=== PATIENT | female | born 1930 | race Caucasian/White ===

== ENCOUNTER 2018-11-28 16:04 | Observation (INO) ==
[2018-11-28 16:35] LABS: Basophils % 0.8 % (0.1-2.0); Eosinophils # 0.2 K/mm3 (0.0-0.4); Eosinophils % 4.6 % (0.1-12.0); Hematocrit 24.4 % (37.0-47.0); Lymphocytes # 1.9 K/mm3 (0.7-4.5); Lymphocytes % 50.2 % (10-50); Mean Corpuscular HGB Conc 29.9 g/dL (31.8-35.4); Mean Corpuscular Hemoglobin 24.6 pg (27.0-31.2); Mean Corpuscular Volume 82.3 fl (81-99); Mean Platelet Volume 9.9 fl (7.4-10.4); Monocytes # 0.3 K/mm3 (0.1-1.0); Monocytes % 8.7 % (1.7-9.3); Neutrophils # 1.3 K/mm3 (1.8-7.8); Neutrophils % 35.7 % (37.0-80.0); Platelet Count 189 K/mm3 (142-424); Red Blood Count 2.97 M/mm3 (4.20-5.40); Red Cell Distribution Width 15.7 % (11.5-17.5); White Blood Count 3.7 K/mm3 (4.8-10.8)
[2018-11-28 16:42] LABS: Albumin Level 3.3 gm/dL (3.4-5.0); Albumin/Globulin Ratio 0.9 (1.1-1.8); Anion Gap 11.5 mEq/L (5-15); Bilirubin,Total 0.2 mg/dL (0.2-1.0); Calcium 9.4 mg/dL (8.5-10.1); Globulin 3.7 gm/dl (1.3-3.2); Potassium 4.5 mmoL/L (3.5-5.1)
[2018-11-28 16:43] LABS: Hemoglobin 7.3 g/dL (12.2-16.2)
--- NOTE | 2018-11-28 16:54 | Emergency Department Note ---
ED Disposition Clinical Impression: Anemia Qualifiers: Anemia type: unspecified type Qualified Code(s): D64.9 - Anemia, unspecified Disposition: Admitted As Inpatient Condition on Discharge: Good Referrals: Fran Arnold MD [Primary Care Provider] - - Critical Care Critical Care Time: No Attestation: On 11/28/18, the high probability of a clinically significant, sudden or life threatening deterioration of the following system(s) required my full and direct attention, intervention and personal management. The time I documented below is in addition to time spent performing reported procedures but includes the following listed in this critical care notation. Medical Decision Making - Bennie Inquiry Pt receiving controlled substance: No Vital Signs: 11/28/18 16:05 11/28/18 16:38 11/28/18 17:18 Temperature 98 F Temperature Source Oral Pulse Rate [Left Apical] 69 70 75 Respiratory Rate 18 16 16 Blood Pressure [Right Arm] 152/77 H 111/55 L 138/68 Blood Pressure Mean [Right Arm] 102 73 91 Blood Pressure Source [Right Arm] Automatic Cuff Automatic Cuff Blood Pressure Position [Right Arm] Sitting Sitting 02 Sat by Pulse Oximetry 96 99 99 Oxygen Delivery Method Room Air Room Air 11/28/18 18:12 Temperature Temperature Source Pulse Rate [Left Apical] 73 Respiratory Rate Blood Pressure [Right Arm] 117/60 Blood Pressure Mean [Right Arm] 79 Blood Pressure Source [Right Arm] Automatic Cuff Blood Pressure Position [Right Arm] Sitting 02 Sat by Pulse Oximetry 96 Oxygen Delivery Method - Lab Data Lab Results 11/28/18 14:00: Stool Occult Blood Negative 11/28/18 16:22: WBC 3.7 L, RBC 2.97 L, Hgb 7.3 L*, Hct 24.4 L, MCV 82.3, MCH 2 4.6 L, MCHC 29.9 L, RDW 15.7, Plt Count 189, MPV 9.9, Neut % (Auto) 35.7 L, Lymph % (Auto) 50.2 H, [place] % (Auto) 8.7, Eos % (Auto) 4.6, Baso % (Auto) 0.8, Neut # (Auto) 1.3 L, Lymph # (Auto) 1.9, [place] # (Auto) 0.3, Eos # (Auto) 0.2, Baso # (Auto) 0.0, Total Counted 100, Neutrophils % (Manual) 40 L, Band Neutrophils % 2.0, Lymphocytes % (Manual) 49, Atypical Lymphs % 1.0, Monocytes % (Manual) 4, Eosinophils % (Manual) 4 H, Platelet Estimate Normal, Macrocytosis 2+, Ovalocytes 1+ 11/28/18 16:22: Sodium 144, Potassium 4.5, Chloride 109 H, Carbon Dioxide 28, Anion Gap 11.5, BUN 29 H, Creatinine 1.12 H, Estimated Creat Clear 28, Estimated GFR 46 L, Est GFR ( Amer) 55 L, Glucose 115 H, Calcium 9.4, Total Bilirubin 0.2, AST 16, ALT 11 L, Alkaline Phosphatase 68, Total Protein 7.0, Albumin 3.3 L, Globulin 3.7 H, Albumin/Globulin Ratio 0.9 L Result diagrams: 11/28/18 16:22 11/28/18 16:22 Orders (Tests/Meds): ED MEDICATIONS Generic Name Dose Route Start Last Admin Trade Name Freq PRN Reason Stop Dose Admin Sodium Chloride 10 ml 11/28/18 16:23 Saline Flush 10ml Syringe IV 12/28/18 16:22 NEEDED PRN Maintain IV Site - Physician Consults Physician Consulted: Clayton Time: 18:19 Reason -: Admission Comment/Response: Agrees to admit the patient to the hospital. We discussed the patient's clinical information, including history, exam, laboratory and radiology results and ED course. Per hospital procedure, I will write temporary bridge inpatient orders on the patient. Specific orders requested by the admitting physician: Transfuse 2 units. Anemia labs prior to transfusion. Continue Eliquis. General Adult HPI - General Chief complaint: Recheck/Abnormal Lab/Rx Stated complaint: abnormal labs Time Seen by Provider: 11/28/18 16:54 Mode of Arrival: EMS Limitations: No Limitations Description of Symptoms (Recalled from ER Triage Doc. by RN): PT arrived to the ED from the sn[facility] with c/o abnormal lab values. assisted staff stated the PT HGB was 7.3 with morning labs. PT states she has been tired today. No pa in noted. - History of Present Illness HPI narrative: The patient has dementia and is not a reliable historian. Sent to the emergency department from [facility] because of low hemoglobin. Hemoglobin 7.3 on labs drawn today. Patient is noted to be on Eliquis. assisted record indicates increased confusion and agitation. Patient denies any complaints. Denies having any pain. - Related Data Home Medications Medication Instructions Recorded Confirmed acetaminophen ER 650 mg 650 mg PO ONCE PRN 12/28/17 07/17/18 tablet,extended release apixaban 5 mg tablet 5 mg PO BID 12/28/17 07/17/18 bisacodyl 10 mg rectal suppository 10 mg AR ONCE 12/28/17 07/17/18 calcium carbonate-vitamin D3 600 600 cap PO DAILY 12/28/17 07/17/18 mg (1,500 mg)-400 unit capsule carbidopa 25 mg-levodopa 100 mg 25 mg PO DAILY 30 Days #90 12/28/17 07/17/18 tablet ibuprofen 600 mg tablet 600 mg PO Q6 PRN 10 Days #30 12/28/17 07/17/18 memantine 28 mg capsule 28 mg PO Q24H 12/28/17 07/17/18 sprinkle,extended release 24hr morphine 30 mg tablet, crush 30 mg PO Q12H 12/28/17 07/17/18 resistant, extended release multivitamin capsule 1 cap PO QAM 12/28/17 07/17/18 polyethylene glycol 3350 17 17 g PO ONCE g 12/28/17 07/17/18 gram/dose oral powder ranitidine 150 mg tablet 150 mg PO BID tab 12/28/17 07/17/18 rivastigmine 13.3 mg/24 hour 13.3 mg TRANSDERMA DAILY 30 Days 12/28/17 07/17/18 transdermal patch #30 sennosides 17.2 mg tablet 17.2 mg PO ONCE 12/28/17 07/17/18 Previous Rx's Medication Instructions Recorded Ondansetron [Zofran 4mg ODT] 4 mg PO TIDP PRN #10 tab.rapdis 07/17/18 Allergies Allergy/AdvReac Type Severity Reaction Status Date / Time etodolac [ETODOLAC] Allergy Unknown Verified 02/08/18 09:53 nitrofurantoin Allergy Unknown Verified 02/08/18 09:53 [From MACROBID] [facility] History - Hepatitis A Screen Drug use history?: No High risk sexual behaviors?: No History of sexually transmitted infection?: No Currently employed?: No Childcare worker?: No Do you have indoor plumbing?: Yes Do you have electricity?: Yes Attestation statement:: This patient has been screened for Hepatitis A risk factors. I have reviewed the patient's past medical history: Yes Medical History: Reports:: Anxiety, Atrial Fibrillation, Deep Vein Thrombosis, Dementia, Depression, Gastroesophageal Reflux Disease(GERD), Hypertension, Osteoporosis, Pulmonary Embolism Denies:: Diabetes Mellitus Type 1, Diabetes Mellitus Type 2 Other Medical History: Reports: Arthritis, Osteoporosis, Other Comment: Parkinson's disease, Mitral valve disorder, [place], duodenal ulcer with hemorrage, alzheimer's, embolism and thrombosis of veins. Other Surgeries: Yes: Colonoscopy Amputation: No Fractures: Yes - Social History Smoking Status: Never smoker Alcohol Intake: never Occupational Status: retired - Psychiatric History Expresses thoughts of harming self/others: None Suicide Plan Description: No Plan Pschychiatric History:: Reports:: Anxiety, Depression Family Hx:: Unable to obtain ROS Obtained: Yes unobtainable due to mental condition Physical Exam - General General appearance: alert, in no apparent distress - Head Head exam: atraumatic, normocephalic - Eye Eye exam: Present: PERRL, EOMI - ENT ENT exam: Present: mucous membranes moist - Neck Neck exam: Present: normal inspection, full ROM, trachea midline. Absent: meningismus - Chest Chest inspection: Present: normal inspection, symmetric chest wall rise - Respiratory Respiratory exam: Present: normal lung sounds bilaterally. Absent: respiratory distress - Cardiovascular Cardiovascular exam: Present: regular rate, normal rhythm, normal heart sounds - Abdominal Exam Abdominal exam: Present: soft. Absent: distention, tenderness - Rectal Exam Rectal exam: Present: normal inspection, normal rectal tone. Absent: black stool, bloody stool, mass - Extremities Exam Extremities exam: Present: other (1+ pitting edema of lower legs and feet) - Neurological Exam Neurological exam: Present: alert, CN II-XII intact. Absent: motor sensory deficit - Psychiatric Psychiatric exam: Present: normal affect, other (Cooperative) - Skin Skin exam: Present: warm
[2018-11-28 17:43] LABS: Eosinophils % 4 % (0-3); Lymphocytes % 49 % (10-50); Macrocytosis 2+; Monocytes % 4 % (2-9); Neutrophils % 40 % (42-76); Total Cells Counted 100
[2018-11-28 17:45] LABS: Ovalocytes 1+
[2018-11-29 05:11] LABS: Basophils % 0.8 % (0.1-2.0); Eosinophils # 0.2 K/mm3 (0.0-0.4); Eosinophils % 3.9 % (0.1-12.0); Hematocrit 33.7 % (37.0-47.0); Lymphocytes # 2.1 K/mm3 (0.7-4.5); Mean Corpuscular HGB Conc 30.6 g/dL (31.8-35.4); Mean Corpuscular Hemoglobin 25.3 pg (27.0-31.2); Mean Corpuscular Volume 82.7 fl (81-99); Mean Platelet Volume 8.1 fl (7.4-10.4); Monocytes # 0.3 K/mm3 (0.1-1.0); Monocytes % 8.3 % (1.7-9.3); Neutrophils # 1.5 K/mm3 (1.8-7.8); Neutrophils % 36.1 % (37.0-80.0); Platelet Count 208 K/mm3 (142-424); Red Blood Count 4.08 M/mm3 (4.20-5.40); Red Cell Distribution Width 15.6 % (11.5-17.5); White Blood Count 4.1 K/mm3 (4.8-10.8)
[2018-11-29 05:16] LABS: Hemoglobin 10.2 g/dL (12.2-16.2)
[2018-11-29 06:19] LABS: Eosinophils % 9 % (0-3); Lymphocytes % 48 % (10-50); Monocytes % 1 % (2-9); Neutrophils % 41 % (42-76); Total Cells Counted 100
[2018-11-29 06:20] LABS: Anisocytosis 1+; Ovalocytes 1+
--- NOTE | 2018-11-29 07:29 | Pharmacy Consult Notes ---
[facility] Pharmacy VTE Monitoring - Patient Demographics Admission date: 11/28/18 Report Date: 11/29/18 Time: 07:29 Allergies/Adverse Reactions: Patient Allergies etodolac [ETODOLAC] Allergy (Unknown, Verified 02/08/18 09:53) nitrofurantoin [From MACROBID] Allergy (Unknown, Verified 02/08/18 09:53) Height: 1.6 m Weight: 60.866 kg Patient Problems: Current Active Problems Anemia (Acute) - VTE Risk Labs: VTE Related Lab Results Hgb 10.2 g/dL (12.2-16.2) L D 11/29/18 04:45 Hct 33.7 % (37.0-47.0) L 11/29/18 04:45 Plt Count 208 K/mm3 (142-424) 11/29/18 04:45 BUN 29 mg/dL (7-18) H 11/28/18 16:22 Creatinine 1.12 mg/dL (0.55-1.02) H 11/28/18 16:22 Estimated Creat Clear 28 mL/min (50-200) 11/28/18 16:22 Was VTE Risk Assessment Performed: Yes VTE Score: 2 VTE Risk Level: Very Low Risk - Prophylaxis VTE Prophylaxis Ordered?: Yes Types of VTE Prophylaxis: Pharmacological Pharmacologic Type: Other (ELIQUIS) - VTE Diagnosis Confirmed Treatment or plan recommended: Continue Current Treatment
--- NOTE | 2018-11-29 09:17 | History & Physical Report ---
*Admission Date: 11/28/18 <11/29/18 09:17> *Chief complaint: Anemia <11/29/18 09:17> *History of present illness: Ms. Becerra is an 88yo WF with a history of HTN, dementia, debility, and GERD, who is a resident at [facility]. She was sent to the [facility] ED yesterday after her morning labs showed hemoglobin low at 7.3. Staff reported she had been tired with some increased confusion and agitation. Upon arrival, her hemoglobin was confirmed low. Her condition was discussed with Dr. Arnold and it was decided to admit her overnight for PRBC transfusion and anemia workup. Her Eliquis was continued. This morning, the patient is resting quietly in bed without complaint. Her hemoglobin has improved following transfusion. She is felt to be stable for discharge back to [place] with followup labs. Her Eliquis will be held. <11/29/18 09:17> [facility] History Medical History: Reports:: Anxiety, Atrial Fibrillation, Deep Vein Thrombosis, Dementia, Depression, Gastroesophageal Reflux Disease(GERD), Hypertension, Osteoporosis, Pulmonary Embolism, Valvular Heart Disease Denies:: Diabetes Mellitus Type 1, Diabetes Mellitus Type 2 <11/29/18 09:24> *Have you ever received a pneumonia vaccine?: Yes <11/29/18 09:17> *Have you received a flu vaccine this season?: Yes <11/29/18 09:17> Other Medical History: Reports: Arthritis, Osteoporosis, Other <11/29/18 09:17> Other Surgeries: Yes: Colonoscopy <11/29/18 09:17> Amputation: No <11/29/18 09:17> Fractures: Yes <11/29/18 09:17> - *Social History Smoking Status: Never smoker <11/29/18 09:17> Alcohol Intake: never <11/29/18 09:17> *Occupational Status:: retired <Madan,Melissa - 03/26/19 09:17> Housing: skilled nursing <Melissa Hager 11/29/18 09:17> Household Members: other <Melissa Hager 11/29/18 09:17> *Travel in the last 8 weeks: None <Melissa Hager 11/29/18 09:17> - Psychiatric History Expresses thoughts of harming self/others: None <Melissa Hager 11/29/18 09:17> Suicide Plan Description: No Plan <Melissa Hager 11/29/18 09:17> Pschychiatric History:: Reports:: Anxiety, Depression <Melissa Hager 11/29/18 09:17> Family Hx:: Unable to obtain <Melissa Hager 11/29/18 09:17> Review of Systems - Review of Systems Review of systems:: unable to obtain <Melissa Hager 11/29/18 09:24> Meds Home Medications Medication Instructions Recorded Confirmed Type acetaminophen ER 650 mg 650 mg PO Q6HP PRN 12/28/17 11/29/18 History tablet,extended release bisacodyl 10 mg rectal suppository 10 mg DC DAILYP PRN 12/28/17 11/29/18 History calcium carbonate-vitamin D3 600 1 cap PO DAILY 12/28/17 11/29/18 History mg (1,500 mg)-400 unit capsule carbidopa 25 mg-levodopa 100 mg 1 tab PO TID 30 Days #90 12/28/17 11/29/18 History tablet ibuprofen 600 mg tablet 600 mg PO Q8HP PRN 10 Days #30 12/28/17 11/29/18 History morphine 30 mg tablet, crush 30 mg PO BID 12/28/17 11/29/18 History resistant, extended release multivitamin capsule 1 cap PO DAILY 12/28/17 11/29/18 History polyethylene glycol 3350 17 17 g PO DAILY g 12/28/17 11/29/18 History gram/dose oral powder ranitidine 150 mg tablet 150 mg PO BID tab 12/28/17 11/28/18 History RX: Mirtazapine [Remeron 15mg 15 mg PO HS 11/29/18 11/29/18 History tablet] RX: Sennosides [Senna] 17.2 mg PO DAILY 11/29/18 11/29/18 History <Hague,Fran - 11/30/18 07:27> Allergies Allergy/AdvReac Type Severity Reaction Status Date / Time etodolac [ETODOLAC] Allergy Unknown Verified 02/08/18 09:53 nitrofurantoin Allergy Unknown Verified 02/08/18 09:53 [From MACROBID] <Fran Arnold - 11/30/18 07:27> Exam Vital signs and Labs for Last 24 Hours: Temp Pulse Resp BP Pulse Ox 97.9 F 74 17 148/74 H 99 11/29/18 07:43 11/29/18 07:43 11/29/18 07:43 11/29/18 07:43 11/29/18 07:43 <Fran Arnold - 11/30/18 07:27> Temp Pulse Resp BP Pulse Ox 97.9 F 74 17 148/74 H 99 11/29/18 07:43 11/29/18 07:43 11/29/18 07:43 11/29/18 07:43 11/29/18 07:43 Laboratory Results - last 24 hr 11/28/18 14:00: Stool Occult Blood Negative 11/28/18 16:22: WBC 3.7 L, RBC 2.97 L, Hgb 7.3 L*, Hct 24.4 L, MCV 82.3, MCH 24.6 L, MCHC 29.9 L, RDW 15.7, Plt Count 189, MPV 9.9, Neut % (Auto) 35.7 L, Lymph % (Auto) 50.2 H, [place] % (Auto) 8.7, Eos % (Auto) 4.6, Baso % (Auto) 0.8, Neut # (Auto) 1.3 L, Lymph # (Auto) 1.9, [place] # (Auto) 0.3, Eos # (Auto) 0.2, Baso # (Auto) 0.0, Total Counted 100, Neutrophils % (Manual) 40 L, Band Neutrophils % 2.0, Lymphocytes % (Manual) 49, Atypical Lymphs % 1.0, Monocytes % (Manual) 4, Eosinophils % (Manual) 4 H, Platelet Estimate Normal, Macrocytosis 2+, Ovalocytes 1+ 11/28/18 16:22: Sodium 144, Potassium 4.5, Chloride 109 H, Carbon Dioxide 28, Anion Gap 11.5, BUN 29 H, Creatinine 1.12 H, Estimated Creat Clear 28, Estimated GFR 46 L, Est GFR ( Amer) 55 L, Glucose 115 H, Calcium 9.4, Total Bilirubin 0.2, AST 16, ALT 11 L, Alkaline Phosphatase 68, Total Protein 7.0, Albumin 3.3 L, Globulin 3.7 H, Albumin/Globulin Ratio 0.9 L 11/28/18 16:22: Retic Count (auto) 1.5 11/28/18 16:22: Ferritin 10 11/28/18 19:30: Blood Type A Positive, Antibody Screen Negative, Crossmatch (G) See Detail 11/29/18 04:45: WBC 4.1 L, RBC 4.08 L D, Hgb 10.2 L D, Hct 33.7 L, MCV 82.7, MCH 25.3 L, MCHC 30.6 L, RDW 15.6, Plt Count 208, MPV 8.1, Neut % (Auto) 36.1 L, Lymph % (Auto) 51.0 H, [place] % (Auto) 8.3, Eos % (Auto) 3.9, Baso % (Auto) 0.8, Neut # (Auto) 1.5 L, Lymph # (Auto) 2.1, [place] # (Auto) 0.3, Eos # (Auto) 0.2, Baso # (Auto) 0.0, Total Counted 100, Neutrophils % (Manual) 41 L, Lymphocytes % (Manual) 48, Monocytes % (Manual) 1 L, Eosinophils % (Manual) 9 H, Basophils % (Manual) 1.0, Platelet Estimate Normal, RBC Morphology Not Reportable, Anisocytosis 1+, Ovalocytes 1+, Acanthocytes (Spur) 1+ <MadanMelissa - 11/29/18 09:17> I & O for Last 24 hours: Intake & Output 11/27/18 11/28/18 11/29/18 11/30/18 23:59 23:59 23:59 23:59 Intake Total 0 / 0 10 10 Output Total 200 / 200 Balance 0 / 0 -190 / -190 Weight 134 lb 3 oz 134 lb 3 oz <HagueFran alcantar - 11/30/18 07:27> Intake & Output 11/26/18 11/27/18 11/28/18 03/26/19 11:59 11:59 11:59 11:59 Intake Total Balance Weight 134 lb 3 oz <Melissa Hager 11/29/18 09:17> - Constitutional Comments: asleep, NAD, arouses to touch, appears frail <Melissa Hager 11/29/18 09:24> - *Routine HEENT Exam Head: Present: normocephalic <Melissa Hager 11/29/18 09:24> ENT: Present: mucous membranes moist <Melissa Hager 11/29/18 09:24> - *Routine Neck Exam Present: supple. Absent: lymphadenopathy <Melissa Hager 11/29/18 09:24> - *Routine Respiratory Exam Present: CTA bilaterally <Elder Hager11/29/18 09:24> Comments: generally diminished <Melissa Hager 11/29/18 09:24> - *Routine Cardiovascular Exam Present: RRR <Melissa Hager 11/29/18 09:24> - *Routine Abdominal Exam Present: soft, normoactive bowel sounds. Absent: tenderness, distended <Melissa Hager 11/29/18 09:24> - *Routine Extremities Exam Present: pulses intact. Absent: edema <Melissa Hager 11/29/18 09:24> - *Routine Neurological Exam arouses to touch, follows some simple commands <Melissa Hager 11/29/18 09:24> Assessment and Plan (1) Anemia Status: Acute Qualifiers: Anemia type: unspecified type Qualified Code(s): D64.9 - Anemia, unspecified Category: Medical Code(s): D64.9 - Anemia, unspecified <Josefa Arnoldian 11/30/18 07:27> - Assessment and plan all Dx Assessment and Plan for all problems:: Saw patient, agree with above note. <Fran Arnold 11/30/18 07:27> Plan for patient to return to [place] today. Hold Eliquis. CBC and BMP in 1 week. Stool for occult blood x 2. <MadanMelissa 11/29/18 09:24>
--- NOTE | 2018-11-29 09:25 | Discharge Summary ---
General - General Admission date:: 11/28/18 Discharge date: 11/29/18 HPI HPI: Ms. Becerra is an 88yo WF with a history of HTN, dementia, debility, and GERD, who is a resident at [facility]. She was sent to the [facility] ED yesterday after her morning labs showed hemoglobin low at 7.3. Staff reported she had been tired with some increased confusion and agitation. Upon arrival, her hemoglobin was confirmed low. Her condition was discussed with Dr. Arnold and it was decided to admit her overnight for PRBC transfusion and anemia workup. Her Eliquis was continued. This morning, the patient is resting quietly in bed without complaint. Her h emoglobin has improved following transfusion. She is felt to be stable for discharge back to [place] with followup labs. Her Eliquis will be held. Hospital Course Hospital Course: see HPI Objective Vital signs: Temp Pulse Resp BP Pulse Ox 97.9 F 74 17 148/74 H 99 11/29/18 07:43 11/29/18 07:43 11/29/18 07:43 11/29/18 07:43 11/29/18 07:43 Results Labs on day of discharge: Labs from last 24 hours 11/29/18 11/28/18 11/28/18 04:45 19:30 16:22 WBC 4.1 L RBC 4.08 L D Hgb 10.2 L D Hct 33.7 L MCV 82.7 MCH 25.3 L MCHC 30.6 L RDW 15.6 Plt Count 208 MPV 8.1 Neut % (Auto) 36.1 L Lymph % (Auto) 51.0 H [place] % (Auto) 8.3 Eos % (Auto) 3.9 Baso % (Auto) 0.8 Neut # (Auto) 1.5 L Lymph # (Auto) 2.1 [place] # (Auto) 0.3 Eos # (Auto) 0.2 Baso # (Auto) 0.0 Total Counted 100 Neutrophils % (Manual) 41 L Band Neutrophils % Lymphocytes % (Manual) 48 Atypical Lymphs % Monocytes % (Manual) 1 L Eosinophils % (Manual) 9 H Basophils % (Manual) 1.0 Platelet Estimate Normal RBC Morphology Not Reportable Anisocytosis 1+ Macrocytosis Ovalocytes 1+ Acanthocytes (Spur) 1+ Retic Count (auto) Sodium Potassium Chloride Carbon Dioxide Anion Gap BUN Creatinine Estimated Creat Clear Estimated GFR Est GFR ( Amer) Glucose Calcium Ferritin 10 Total Bilirubin AST ALT Alkaline Phosphatase Total Protein Albumin Globulin Albumin/Globulin Ratio Stool Occult Blood Blood Type A Positive Antibody Screen Negative Crossmatch ([facility]) See Detail 11/28/18 11/28/18 11/28/18 16:22 16:22 16:22 WBC 3.7 L RBC 2.97 L Hgb 7.3 L* Hct 24.4 L MCV 82.3 MCH 24.6 L MCHC 29.9 L RDW 15.7 Plt Count 189 MPV 9.9 Neut % (Auto) 35.7 L Lymph % (Auto) 50.2 H [place] % (Auto) 8.7 Eos % (Auto) 4.6 Baso % (Auto) 0.8 Neut # (Auto) 1.3 L Lymph # (Auto) 1.9 [place] # (Auto) 0.3 Eos # (Auto) 0.2 Baso # (Auto) 0.0 Total Counted 100 Neutrophils % (Manual) 40 L Band Neutrophils % 2.0 Lymphocytes % (Manual) 49 Atypical Lymphs % 1.0 Monocytes % (Manual) 4 Eosinophils % (Manual) 4 H Basophils % (Manual) Platelet Estimate Normal RBC Morphology Anisocytosis Macrocytosis 2+ Ovalocytes 1+ Acanthocytes (Spur) Retic Count (auto) 1.5 Sodium 144 Potassium 4.5 Chloride 109 H Carbon Dioxide 28 Anion Gap 11.5 BUN 29 H Creatinine 1.12 H Estimated Creat Clear 28 Estimated GFR 46 L Est GFR ( Amer) 55 L Glucose 115 H Calcium 9.4 Ferritin Total Bilirubin 0.2 AST 16 ALT 11 L Alkaline Phosphatase 68 Total Protein 7.0 Albumin 3.3 L Globulin 3.7 H Albumin/Globulin Ratio 0.9 L Stool Occult Blood Blood Type Antibody Screen Crossmatch ([facility]) 11/28/18 14:00 WBC RBC Hgb Hct MCV MCH MCHC RDW Plt Count MPV Neut % (Auto) Lymph % (Auto) [place] % (Auto) Eos % (Auto) Baso % (Auto) Neut # (Auto) Lymph # (Auto) [place] # (Auto) Eos # (Auto) Baso # (Auto) Total Counted Neutrophils % (Manual) Band Neutrophils % Lymphocytes % (Manual) Atypical Lymphs % Monocytes % (Manual) Eosinophils % (Manual) Basophils % (Manual) Platelet Estimate RBC Morphology Anisocytosis Macrocytosis Ovalocytes Acanthocytes (Spur) Retic Count (auto) Sodium Potassium Chloride Carbon Dioxide Anion Gap BUN Creatinine Estimated Creat Clear Estimated GFR Est GFR ( Amer) Glucose Calcium Ferritin Total Bilirubin AST ALT Alkaline Phosphatase Total Protein Albumin Globulin Albumin/Globulin Ratio Stool Occult Blood Negative Blood Type Antibody Screen Crossmatch ([facility]) Discharge Plan - Patient Discharge Instructions ACTIVITY: Continue current activity DIET: continue same diet Additional Instructions: Patient needs to have her next 2 bowel movements at [place] checked for occult blood. She needs a CBC and BMP in 1 week. Patient Instructions: Dementia, Alzheimer's Disease, Anemia - Follow up Plan Follow up with: Fran Arnold MD [Primary Care Provider] - (At [place]) Disposition: er [facility] Home Medications: Home Medications Medication Instructions Recorded Confirmed Type acetaminophen ER 650 mg 650 mg PO Q6HP PRN 12/28/17 11/29/18 History tablet,extended release apixaban 5 mg tablet 5 mg PO BID 12/28/17 11/28/18 History bisacodyl 10 mg rectal suppository 10 mg RI DAILYP PRN 12/28/17 11/29/18 History calcium carbonate-vitamin D3 600 1 cap PO DAILY 12/28/17 11/29/18 History mg (1,500 mg)-400 unit capsule carbidopa 25 mg-levodopa 100 mg 1 tab PO TID 30 Days #90 12/28/17 11/29/18 History tablet ibuprofen 600 mg tablet 600 mg PO Q8HP PRN 10 Days #30 12/28/17 11/29/18 History morphine 30 mg tablet, crush 30 mg PO BID 12/28/17 11/29/18 History resistant, extended release multivitamin capsule 1 cap PO DAILY 12/28/17 11/29/18 History polyethylene glycol 3350 17 17 g PO DAILY g 12/28/17 11/29/18 History gram/dose oral powder ranitidine 150 mg tablet 150 mg PO BID tab 12/28/17 11/28/18 History Mirtazapine [Remeron 15mg tablet] 15 mg PO HS 11/29/18 11/29/18 History Sennosides [Senna] 17.2 mg PO DAILY 11/29/18 11/29/18 History Prescriptions/Medication Reconciliation: Continue ibuprofen 600 mg tablet 600 mg PO Q8HP PRN 10 Days #30 PRN Reason: pain carbidopa 25 mg-levodopa 100 mg tablet 1 tab PO TID 30 Days #90 acetaminophen ER 650 mg tablet,extended release 650 mg PO Q6HP PRN PRN Reason: pain bisacodyl 10 mg rectal suppository 10 mg RI DAILYP PRN PRN Reason: Constipation morphine 30 mg tablet, crush resistant, extended release 30 mg PO BID ranitidine 150 mg tablet 150 mg PO BID tab calcium carbonate-vitamin D3 600 mg (1,500 mg)-400 unit capsule 1 cap PO DAILY polyethylene glycol 3350 17 gram/dose oral powder 17 g PO DAILY g multivitamin capsule 1 cap PO DAILY Mirtazapine [Remeron 15mg tablet] 15 mg PO HS Sennosides [Senna] 17.2 mg PO DAILY Discontinued apixaban 5 mg tablet 5 mg PO BID
== END 2018-11-29 11:48 ==
LOC: ER 16:04 → 2ND 18:28 → INTOOBSV 19:56 → 2ND 19:57
PROVIDERS: ADMIT Family Medicine; ATTEND Family Medicine
CPT/HCPCS: 36415; 80053; 82272; 82728; 85007; 85025; 85044; 86850; 99284; G0328; G0378; P9016